=== PATIENT | female | born 1965 | race Caucasian/White ===

== ENCOUNTER 2023-02-03 05:48 | Inpatient (IN) ==
[2023-02-03] MEDS ORDERED: Buffered Lidocaine 1% SYRIN 1 ml INTRADERM ONE (06:00)
[2023-02-03] MEDS ORDERED: Lactated Ringers 1000 ml BAG 1,000 ML IV SCH (06:00)
[2023-02-03] MEDS ORDERED: Heparin 5000 UNITS/ML 1 mL VIAL ONE (06:07)
[2023-02-03] MEDS ORDERED: ceFAZolin 2 GM in NS PREMIX 2 GM/100 ML BAG IVPB ONE (06:07)
[2023-02-03 06:34] LABS: Rapid COVID-19 Molecular Undetected (Undetected)
[2023-02-03] MEDS ORDERED: Lidocaine 2% PF 5 ML VIAL ONE (07:15)
[2023-02-03] MEDS ORDERED: Propofol 10 MG/ML 20 ML BTL ONE (07:15)
[2023-02-03] MEDS ORDERED: fentaNYL 100 mcg/2 ml 50 MCG/ML VIAL ONE ×3 (07:15→11:35)
[2023-02-03] MEDS ORDERED: Midazolam 2 mg/2 ml VIAL 1 mg/ml 2 ml VIAL (2 mg) ONE (07:15)
[2023-02-03] MEDS ORDERED: Rocuronium 50 mg VIAL 10 mg/ml 5 ml VIAL (50 mg) ONE (07:15)
[2023-02-03] MEDS ORDERED: Naloxone 0.4 mg VIAL 0.4 mg/ml 1 ml VIAL IV PRN (08:10)
[2023-02-03] MEDS ORDERED: HYDROmorphone 1 MG/1 ML SYRINGE IV PRN (08:10)
[2023-02-03] MEDS ORDERED: fentaNYL 100 mcg/2 ml 50 MCG/ML VIAL IV PRN (08:10)
[2023-02-03] MEDS ORDERED: Prochlorperazine 5 mg/ml 2 ml VIAL (10 mg) IV PRN (08:10)
[2023-02-03] MEDS ORDERED: Bupivacaine 0.5% 50 ML MDV VIAL ONE (08:30)
[2023-02-03] MEDS ORDERED: Phenylephrine 40 mcg/mL 10mL (400mcg) SYRINGE ONE (08:30)
[2023-02-03] MEDS ORDERED: Phenylephrine IV 10 MG/ML 1 ml VIAL ONE (08:57)
[2023-02-03] MEDS ORDERED: ceFAZolin VIAL VIAL ONE (11:27)
[2023-02-03] MEDS ORDERED: Sterile Water for Inj 10 ML ONE (11:27)
[2023-02-03] MEDS ORDERED: Ondansetron 4 mg VIAL 2 MG/ML 2 ml VIAL ONE (14:12)
[2023-02-03] MEDS ORDERED: Acetaminophen IV 1 GM/100ML 1,000 MG/100 ML BAG IV ONE (14:12)
[2023-02-03] MEDS ORDERED: NS 0.9% 500 ml BAG 500 ML IV ONE (15:37)
[2023-02-03] MEDS ORDERED: HYDROcodone/ACETAMIN 5/325 mg TAB PO PRN (15:41)
[2023-02-03] MEDS ORDERED: Morphine 2 MG/ML SYRINGE IV PRN ×2 (15:42→17:11)
[2023-02-03] MEDS ORDERED: ceFAZolin VIAL 2 GM in NS 0.9% 100 ml BAG 100 ML IVPB SCH (16:00)
[2023-02-03] MEDS ORDERED: HYDROcodone/Acetamin 10/325 TAB (NF) PO PRN (17:10)
[2023-02-03] MEDS ORDERED: Benzocaine (plain) Lozenge 15 MG PO PRN (18:04)
[2023-02-03] MEDS ORDERED: Scopolamine 1 mg/72hr PATCH TRANSDERM SCH (18:30)
[2023-02-03] MEDS ORDERED: Lactated Ringers 1000 ml BAG 1,000 ML IV ONE ×3 (19:35→21:16)
[2023-02-03] MEDS ORDERED: Ondansetron 4 mg VIAL 2 MG/ML 2 ml VIAL IV PRN (19:48)
[2023-02-03 20:22] LABS: ABS Basophils 0.2 10^3/uL (0.0-0.1); ABS Lymphocytes 0.3 10^3/uL (1.0-4.8); ABS Monocytes 0.4 10^3/uL (0.0-0.9); ABS Neutrophils 15.1 10^3/uL (1.5-7.6); Hematocrit 27.1 % (35-45); Lymphocyte % 1.7 %; Mean Corpuscular Hemoglobin 32.5 pg (27-33); Mean Corpuscular Hgb Conc 33.4 g/dL (31-36); Mean Corpuscular Volume 97.4 fL (80-97); Mean Platelet Volume 7.2 fL (7.5-11.2); Platelet Count 294 10^3/uL (150-450); Red Blood Count 2.78 10^6/uL (3.63-4.92)
[2023-02-03 20:42] LABS: Calcium 8.1 mg/dL (8.6-10.3); Creatinine, Serum 0.54 mg/dL (0.51-0.95); Potassium 3.9 mmol/L (3.5-5.0)
[2023-02-03] MEDS ORDERED: Metoclopramide 5 MG/ML VIAL (10 mg) IV SLOW PU ONE (21:25)
[2023-02-03] MEDS: ceFAZolin 2 GM PREMIX 2 GM/50 ML BAG IV SCH (21:41)
[2023-02-03] MEDS ORDERED: Pantoprazole VIAL 40 MG VIAL IV ONE (23:00)
[2023-02-03 23:38] LABS: Hematocrit 23.8 % (35-45); Hemoglobin 8.2 g/dL (11.5-14.3)
[2023-02-04] MEDS ORDERED: Midazolam 2 mg/2 ml VIAL 1 mg/ml 2 ml VIAL (2 mg) ONE (00:09)
[2023-02-04] MEDS ORDERED: fentaNYL 100 mcg/2 ml 50 MCG/ML VIAL ONE ×2 (00:09→02:06)
[2023-02-04] MEDS: Heparin 5000 UNITS/ML 1 mL VIAL SUBCUT SCH ×3 (00:38→21:47)
[2023-02-04] MEDS ORDERED: Propofol 10 MG/ML 20 ML BTL ONE (02:15)
[2023-02-04] MEDS ORDERED: Phenylephrine 40 mcg/mL 10mL (400mcg) SYRINGE ONE (02:15)
[2023-02-04] MEDS ORDERED: ceFAZolin VIAL VIAL ONE ×3 (02:15→02:32)
[2023-02-04] MEDS ORDERED: Ondansetron 4 mg VIAL 2 MG/ML 2 ml VIAL ONE (02:15)
[2023-02-04] MEDS ORDERED: Succinylcholine 200 mg VIAL 20 mg/ml 10 ml VIAL (200 mg) ONE (02:15)
[2023-02-04] MEDS ORDERED: Dexamethasone IV 4 MG/ML VIAL 1 ml VIAL ONE (02:15)
[2023-02-04] MEDS ORDERED: Lidocaine 2% PF 5 ML VIAL ONE (02:15)
[2023-02-04] MEDS ORDERED: cefTRIAXone VIAL 1,000 MG VIAL ONE (02:31)
[2023-02-04] MEDS ORDERED: HYDROmorphone 0.5 MG/0.5 ML SYRINGE ONE (02:57)
[2023-02-04] MEDS ORDERED: HYDROmorphone 1 MG/1 ML SYRINGE IV PRN (03:16)
[2023-02-04] MEDS ORDERED: Naloxone 0.4 mg VIAL 0.4 mg/ml 1 ml VIAL IV PRN (03:16)
[2023-02-04] MEDS ORDERED: Acetaminophen IV 1 GM/100ML 1,000 MG/100 ML BAG IV ONE ×2 (04:08→04:13)
[2023-02-04] MEDS: ceFAZolin 2 GM PREMIX 2 GM/50 ML BAG IV SCH ×3 (06:18→20:21)
[2023-02-04] MEDS ORDERED: Benzocaine/Menthol LOZ PO PRN (11:51)
[2023-02-04] MEDS ORDERED: Lactated Ringers 1000 ml BAG 1,000 ML IV SCH (12:00)
[2023-02-04] MEDS ORDERED: Benzocaine (plain) Lozenge 15 MG PO PRN (13:00)
[2023-02-04 15:02] LABS: ABS Lymphocytes 0.7 10^3/uL (1.0-4.8); ABS Monocytes 0.6 10^3/uL (0.0-0.9); ABS Neutrophils 8.9 10^3/uL (1.5-7.6); Hematocrit 27.4 % (35-45); Hemoglobin 9.9 g/dL (11.5-14.3); Lymphocyte % 6.6 %; Mean Corpuscular Hemoglobin 33.6 pg (27-33); Mean Corpuscular Hgb Conc 36.3 g/dL (31-36); Mean Corpuscular Volume 92.7 fL (80-97); Mean Platelet Volume 7.5 fL (7.5-11.2); Platelet Count 238 10^3/uL (150-450); Red Blood Count 2.96 10^6/uL (3.63-4.92); Red Cell Distribution Width 14.4 % (12-17); White Blood Count 10.2 10^3/uL (3.8-11.8)
[2023-02-05] MEDS: ceFAZolin 2 GM PREMIX 2 GM/50 ML BAG IV SCH ×3 (05:29→20:13)
[2023-02-05 08:30] LABS: ABS Monocytes 0.7 10^3/uL (0.0-0.9); Eosinophil % 0.4 %; Hematocrit 24.5 % (35-45); Hemoglobin 8.7 g/dL (11.5-14.3); Lymphocyte % 14.4 %; Mean Corpuscular Hemoglobin 33.1 pg (27-33); Mean Corpuscular Hgb Conc 35.6 g/dL (31-36); Mean Corpuscular Volume 92.9 fL (80-97); Mean Platelet Volume 7.8 fL (7.5-11.2); Platelet Count 229 10^3/uL (150-450); Red Blood Count 2.63 10^6/uL (3.63-4.92); Red Cell Distribution Width 14.7 % (12-17); White Blood Count 6.6 10^3/uL (3.8-11.8)
[2023-02-05] MEDS ORDERED: NF: Estradiol VAG CM (NF) 1 APPLIC TUBE VAGINAL SCH (09:00)
[2023-02-05] MEDS ORDERED: Ferric Gluconate IV 250 MG in NS 0.9% 250 ml 200 ML IVPB ONE (09:07)
[2023-02-05] MEDS ORDERED: NS 0.9% 500 ml BAG 500 ML IV ONE (09:17)
[2023-02-05 09:58] LABS: Urine Appearance Clear; Urine Bilirubin Negative (Negative); Urine Blood Negative (Negative); Urine Color Straw; Urine Glucose Negative (Negative); Urine Ketones Negative (Negative); Urine Nitrite Negative (Negative); Urine Protein Negative (Negative); Urine Specific Gravity 1.011 (1.002-1.030); Urine Urobilinogen Negative (Negative)
[2023-02-05] MEDS: Heparin 5000 UNITS/ML 1 mL VIAL SUBCUT SCH ×2 (09:58→20:15)
[2023-02-05 10:08] LABS: Urine Bacteria Absent (Absent); Urine Red Blood Cell Trace(0-2/hpf) (Absent); Urine Squamous Epithelial Cell Present (Absent); Urine White Blood Cell Trace(0-5/hpf) (Absent)
[2023-02-06] MEDS: ceFAZolin 2 GM PREMIX 2 GM/50 ML BAG IV SCH ×2 (04:19→11:30)
[2023-02-06] MEDS: Heparin 5000 UNITS/ML 1 mL VIAL SUBCUT SCH (08:23)
[2023-02-06 10:16] VITALS: BP 137/79
[2023-02-06 10:38] LABS: TSH Ultra Thyroid Stim Horm 1.01 mcIU/mL (0.34-5.60)
== END 2023-02-06 13:35 | disposition home or self-care (01) | DRG 362 ==
LOC: AA 05:48 → SSU 17:55 → ICU 02-04 04:00 → SSU 02-04 04:01
PROVIDERS: ADMIT Student in an Organized Health Care Education/Training Program; ATTEND Student in an Organized Health Care Education/Training Program